=== PATIENT | male | born 1965 | race Caucasian/White ===

== ENCOUNTER → 2017-07-03 | Outpatient (CLI) | payer OTHER ==
[~2017-07-03] MED LIST: ASPI-515 PO; ATOR40TA PO; CHOL2000 PO; FISH1CAP PO; METO25TA35 PO; NITR0.4T SL; PRAS10TA4 PO; UBID100C41 PO
== END | disposition home or self-care (01) ==
LOC: CFH 08:03
PROVIDERS: ATTEND Internal Medicine Cardiovascular Disease
DX: R07.89 Other chest pain (principal); R42 Dizziness and giddiness
CPT/HCPCS: 78452; 93017; A9502

== ENCOUNTER 2018-02-26 09:44 | Day surgery (SDC) | payer OTHER ==
[2018-02-24 09:13] LABS: BASOPHILS # (AUTO) 0.03 x10^3/uL (0-0.1); BASOPHILS % (AUTO) 0 % (0-1); EOSINOPHILS % (AUTO) 1 % (1-7); LYMPHOCYTES # (AUTO) 2.55 x10^3/uL (1-3.4); LYMPHOCYTES % (AUTO) 36 % (22-44); MD NO; MEAN CORPUSCULAR HEMOGLOBIN 28.8 pg (27.5-34.5); MEAN CORPUSCULAR HGB CONC 33.4 g/dL (33.2-36.2); MEAN CORPUSCULAR VOLUME 86.3 fL (81-97); MONOCYTES # (AUTO) 0.75 x10^3/uL (0.2-0.8); MONOCYTES % (AUTO) 11 % (2-9); NEUTROPHILS # (AUTO) 3.65 x10^3/uL (1.8-6.8); NEUTROPHILS % (AUTO) 52 % (42-75); PLATELET COUNT 220 x10^3/uL (130-400); RED BLOOD COUNT 5.35 x10^6/uL (4.38-5.82); RED CELL DISTRIBUTION WIDTH 13.8 % (9.4-14.8)
[2018-02-24 09:23] LABS: ANION GAP 5 mmol/L (5-15); CALCIUM 8.8 mg/dL (8.5-10.1); CHLORIDE 107 mmol/L (98-107); CREATININE 1.05 mg/dL (0.7-1.3)
[~2018-02-26] VITALS: Ht 180.3 cm; Wt 112.3 kg
[~2018-02-26 09:44] MED LIST changes: +ASPI-496 PO; +FOLI1TAB5 PO
[2018-02-26 09:58] VITALS: BP 169/99
[2018-02-26] MEDS ORDERED: TICAGRELOR 90 MG TABLET ONE (13:06)
[2018-02-26] MEDS ORDERED: VERAPAMIL 2.5 MG/ML, 2ML ONE (13:06)
[2018-02-26] MEDS ORDERED: FENTANYL PF 100 MCG/2ML ONE (13:06)
[2018-02-26] MEDS ORDERED: HEPARIN 1,000 UNITS/ML, 10ML ONE (13:06)
[2018-02-26] MEDS ORDERED: BIVALIRUDIN 250 MG ONE (13:06)
[2018-02-26] MEDS ORDERED: MIDAZOLAM 1 MG/ML, 5ML ONE (13:06)
[2018-02-26] MEDS ORDERED: LIDOCAINE 2%, 2ML ONE (13:07)
[2018-02-26] MEDS ORDERED: NITROGLYCERIN 5 MG/ML, 10ML ONE (13:23)
== END 2018-02-26 16:14 ==
LOC: CACL 09:44
PROVIDERS: ATTEND Internal Medicine Cardiovascular Disease
DX: I25.10 Atherosclerotic heart disease of native coronary artery without angina pectoris (principal); Z72.89 Other problems related to lifestyle; Z79.82 Long term (current) use of aspirin
CPT/HCPCS: 36415; 80048; 85025; 93458; 99156; C1769; C1894; J1644; J2250; J3010; J3490; Q9967; J0583

== ENCOUNTER → 2020-02-19 | Outpatient (CLI) | payer OTHER ==
[~2020-02-19] MED LIST changes: -NITR0.4T SL; +NITR0.4T41 SL
== END | disposition home or self-care (01) ==
LOC: CFH 06:54
PROVIDERS: ATTEND Internal Medicine Cardiovascular Disease
DX: R93.1 Abnormal findings on diagnostic imaging of heart and coronary circulation (principal); I20.9 Angina pectoris, unspecified; I10 Essential (primary) hypertension
CPT/HCPCS: 78452; 93017; A9502